=== PATIENT | male | born 1965 | race Caucasian/White ===

== ENCOUNTER 2018-03-07 19:27 | Emergency (ER) | payer BC ==
[2018-03-07 19:51] VITALS: PULSE 112; O2SAT 97
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
[2018-03-07] MEDS ORDERED: PERCOCET TABLET 5/325MG PO STA (21:22)
[2018-03-07] MEDS ORDERED: PERCOCET TABLET 5/325MG ONE (21:41)
[2018-03-07 22:04] VITALS: BP 146/93
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
== END 2018-03-07 22:19 | disposition home or self-care (01) ==
LOC: ED 19:27
DX: S01.01XA Laceration without foreign body of scalp, initial encounter (principal); V57.0XXA Driver of pick-up truck or van injured in collision with fixed or stationary object in nontraffic accident, initial encounter; Y92.488 Other paved roadways as the place of occurrence of the external cause; R51 Headache; M25.562 Pain in left knee; M54.5 Low back pain; I10 Essential (primary) hypertension; K21.9 Gastro-esophageal reflux disease without esophagitis
CPT/HCPCS: 12001; 70450; 72131; 73562; 99284; A9270-GY